=== PATIENT | female | born 1970 | race Caucasian/White ===

== ENCOUNTER 2016-07-28 15:30 | Inpatient (IN) | payer OTHER ==
[~2016-07-28] VITALS: Ht 167.6 cm; Wt 99.6 kg
[2016-07-28] MEDS ORDERED: NS IV 1000 ML 1,000 ML IV ONE ×2 (16:03→16:45)
[2016-07-28 16:31] LABS: BASOPHILS % (AUTO) 0 % (0-10); EOSINOPHILS % (AUTO) 0 % (0-10); LYMPHOCYTES # (AUTO) 1.2 X 10^3 (1.0-4.0); LYMPHOCYTES % (AUTO) 4 % (12-44); MEAN CORPUSCULAR HEMOGLOBIN 30 PG (25-34); MEAN CORPUSCULAR HGB CONC 34 G/DL (32-36); MEAN CORPUSCULAR VOLUME 90 FL (80-99); MEAN PLATELET VOLUME 11.1 FL (7.4-10.4); MONOCYTES # (AUTO) 1.5 X 10^3 (0.0-1.0); MONOCYTES % (AUTO) 4 % (0-12); NEUTROPHILS # (AUTO) 30.8 X 10^3 (1.8-7.8); NEUTROPHILS % (AUTO) 92 % (42-75); PLATELET COUNT 333 10^3/uL (130-400); RED BLOOD COUNT 3.29 10^6/uL (4.35-5.85)
[2016-07-28 16:35] LABS: WHITE BLOOD COUNT 33.5 10^3/uL (4.3-11.0)
[2016-07-28 16:43] LABS: ALBUMIN 3.5 G/DL (3.2-4.5); BILIRUBIN,TOTAL 1.3 MG/DL (0.1-1.0); CREATININE SERUM 5.82 MG/DL (0.60-1.30); POTASSIUM 5.5 MMOL/L (3.6-5.0); TOTAL PROTEIN 7.1 G/DL (6.4-8.2)
[2016-07-28] MEDS: LACTATED RINGERS 1,000 ML IV SCH ×3 (16:56→22:35)
[2016-07-28 16:59] LABS: BAND NEUTROPHILS 6 %; BASOPHILS % (MANUAL) 0 %; EOSINOPHILS % (MANUAL) 0 %; LYMPHOCYTES % (MANUAL) 3 %; NEUTROPHILS % (MANUAL) 91 %
--- NOTE | 2016-07-28 17:02 | ED General ---
General Chief Complaint: General Problems/Pain Stated Complaint: FEVER Nursing Triage Note: Patient reports nausea, vomiting, generalized weakness, fever and body aches since the 05 of july. patient has been evaluated twice by Dr. Teague patient was given prednisone, tramadol and phenergan without improvement. patient was on way to see Dr. Barr today and vomited and presented here Nursing Sepsis Screen: No Definite Risk Source of Information: Patient, Family Exam Limitations: No Limitations History of Present Illness Time Seen by Provider: 16:30 Initial Comments The patient Is a 46-year-old white female who was brought to the emergency room by her mother. They report that she has been ill since July 05. She saw Dr. Kermit Teague at an immediate care facility on that date. No specific diagnosis was made and she was given symptomatic treatment. She was then seen there at a later date and given prednisone and empiric therapy. She reports that she's felt well for only 1 or 2 days during this period of time. Her mother was driving her this afternoon and she vomited and looked quite fainty and she decided to come here instead of going to Dr. Barr s office. She was noted to be febrile at presentation with a temperature of 102.3 her blood pressure was 65 /29 her pulse 124. IV fluid resuscitation was started immediately. She gave no history immediately suggestive of the source of infection Timing/Duration: Other (July 05) Associated Systoms: Diaphoresis, Fever/Chills, Nausea/Vomiting Allergies and Home Medications Allergies Coded Allergies: No Known Drug Allergies (Unverified , 07/28/16) Constitutional: see HPI EENTM: no symptoms reported Cardiovascular: no symptoms reported Gastrointestinal: diarrhea, nausea, vomiting Genitourinary: no symptoms reported Musculoskeletal: muscle weakness Skin: see HPI Psychiatric/Neurological: No Symptoms Reported Past Rjkeekf-Ilfnif-Kcaikp Hx Patient Social History Alcohol Use: Denies Use Recreational Drug Use: No Smoking Status: Never a Smoker Recent Foreign Travel: No Contact w/Someone Who Travel: No Recent Infectious Disease Expo: No Recent Hopitalizations: No Seasonal Allergies Seasonal Allergies: No Surgeries HX Surgeries: No Respiratory Hx Respiratory Disorders: No Cardiovascular Hx Cardiac Disorders: Yes Cardiac Disorders: Hypertension Neurological Hx Neurological Disorders: No Reproductive System Hx Reproductive Disorders: No Sexually Transmitted Disease: No Female Reproductive Disorders: Menstrual Problems Genitourinary Hx Genitourinary Disorders: No Gastrointestinal Hx Gastrointestinal Disorders: No Musculoskeletal Hx Musculoskeletal Disorders: No Endocrine Hx Endocrine Disorders: Yes Endocrine Disorders: Hypothyroidsim HEENT HX ENT Disorders: No Cancer Hx Cancer: No Psychosocial Hx Psychiatric Problems: No Integumentary HX Skin/Integumentary Disorder: No Blood Transfusions Hx Blood Disorders: No Physical Exam Vital Signs Vital Sign - Last 12Hours 07/28/16 15:46 Temp 102.3 Pulse 124 Resp 18 B/P (MAP) 65/29 Pulse Ox 98 O2 Delivery Room Air Capillary Refill : Less Than 3 Seconds General Appearance: Moderate Distress, Severe Distress Eyes: Bilateral Eye Normal Inspection HEENT: Normal ENT Inspection Neck: Normal Inspection Respiratory: Chest Non Tender, Lungs Clear, Normal Breath Sounds, No Accessory Muscle Use, No Respiratory Distress Cardiovascular: Tachycardia Gastrointestinal: Other (obese. Bowel sounds hypoactive no pain to palpation) Back: No CVA Tenderness Extremity: Normal Inspection, Normal Range of Motion, Non Tender, No Calf Tenderness, No Pedal Edema, Slow Capillary Refill Neurologic/Psychiatric: Alert, Oriented x3, No Motor/Sensory Deficits, Normal Mood/Affect Skin: Normal Color, Warm/Dry Lymphatic: No Adenopathy Focused Exam Lactic Acid Level Laboratory Tests Test 07/28/16 16:05 Lactic Acid Level 2.97 MMOL/L (0.50-2.00) *H Progress/Results/Core Measures Results/Orders Lab Results Laboratory Tests Test 07/28/16 16:05 Range/Units White Blood Count 33.5 *H 4.3-11.0 10^3/uL Red Blood Count 3.29 L 4.35-5.85 10^6/uL Hemoglobin 10.0 L 11.5-16.0 G/DL Hematocrit 30 L 35-52 % Mean Corpuscular Volume 90 80-99 FL Mean Corpuscular Hemoglobin 30 25-34 PG Mean Corpuscular Hemoglobin Concent 34 32-36 G/DL Red Cell Distribution Width 13.0 10.0-14.5 % Platelet Count 333 130-400 10^3/uL Mean Platelet Volume 11.1 H 7.4-10.4 FL Neutrophils (%) (Auto) 92 H 42-75 % Lymphocytes (%) (Auto) 4 L 12-44 % Monocytes (%) (Auto) 4 0-12 % Eosinophils (%) (Auto) 0 0-10 % Basophils (%) (Auto) 0 0-10 % Neutrophils # (Auto) 30.8 H 1.8-7.8 X 10^3 Lymphocytes # (Auto) 1.2 1.0-4.0 X 10^3 Monocytes # (Auto) 1.5 H 0.0-1.0 X 10^3 Eosinophils # (Auto) 0.0 0.0-0.3 10^3/uL Basophils # (Auto) 0.0 0.0-0.1 10^3/uL Neutrophils % (Manual) 91 % Lymphocytes % (Manual) 3 % Monocytes % (Manual) 0 % Eosinophils % (Manual) 0 % Basophils % (Manual) 0 % Band Neutrophils 6 % Blood Morphology Comment NORMAL Sodium Level 125 *L 135-145 MMOL/L Potassium Level 5.5 H 3.6-5.0 MMOL/L Chloride Level 95 L 98-107 MMOL/L Carbon Dioxide Level 16 L 21-32 MMOL/L Anion Gap 14 5-14 MMOL/L Blood Urea Nitrogen 45 H 7-18 MG/DL Creatinine 5.82 H 0.60-1.30 MG/DL Estimat Glomerular Filtration Rate 8 BUN/Creatinine Ratio 8 Glucose Level 133 H 70-105 MG/DL Lactic Acid Level 2.97 *H 0.50-2.00 MMOL/L Calcium Level 9.0 8.5-10.1 MG/DL Total Bilirubin 1.3 H 0.1-1.0 MG/DL Aspartate Amino Transf (AST/SGOT) 15 5-34 U/L Alanine Aminotransferase (ALT/SGPT) 19 0-55 U/L Alkaline Phosphatase 142 H 40-136 U/L Total Protein 7.1 6.4-8.2 G/DL Albumin 3.5 3.2-4.5 G/DL My Orders Orders - NI SHEPARD MD Saline Lock/Iv-Start (07/28/16 16:03) Ns Iv 1000 Ml (Sodium Chloride 0.9%) (07/28/16 16:03) Cbc With Automated Diff (07/28/16 16:07) Comprehensive Metabolic Panel (07/28/16 16:07) Lactic Acid Analyzer (07/28/16 16:07) Ua Culture If Indicated (07/28/16 16:07) Blood Culture (07/28/16 16:07) Chest 1 View, Ap/Pa Only (07/28/16 16:07) Manual Differential (07/28/16 16:05) Ns Iv 1000 Ml (Sodium Chloride 0.9%) (07/28/16 16:45) Lactated Ringers (Lr 1000 Ml Iv Solution (07/28/16 17:00) Medications Given in ED Current Medications Medications Dose Ordered Sig/Ady Route Start Time Stop Time Status Last Admin Dose Admin Sodium Chloride 1,000 ml @ 0 mls/hr Q0M ONCE IV 07/28/16 16:03 07/28/16 16:05 DC 07/28/16 16:11 0 MLS/HR Sodium Chloride 1,000 ml @ 0 mls/hr Q0M ONCE IV 07/28/16 16:45 07/28/16 16:46 DC 07/28/16 16:49 0 MLS/HR Vital Signs/I&O Vital Sign - Last 12Hours 07/28/16 07/28/16 07/28/16 15:46 16:52 17:26 Temp 102.3 102.6 100.6 Pulse 124 97 103 Resp 18 16 18 B/P (MAP) 65/29 78/48 80/46 Pulse Ox 98 100 100 O2 Delivery Room Air Room Air Room Air Blood Pressure Mean: 58 Departure Communication Progress Notes Discussed patient with Dr. Barr who is the hospitalist at 1648. The patient will be admitted to the ICU. 1708 discussed with Caleb Morse inpatient clinical vineyard worker. The plan will be to start Zosyn and vancomycin and pharmacy will adjust to kidney function for subsequent doses. 1725 reevaluated patient. Blood pressure has now reached 100 systolic. The capillary refill is less than 3 seconds[address] Gallardo who is on for ICU/critical intensive care nurse Impression Impression: Primary Impression: septic shock Disposition: ADMITTED INPATIENT Condition: Improved Decision to Admit Reason: Admit from ER (General) Decision to Admit/Date: Jul 28, 2016 Time/Decision to Admit Time: 17:24 Departure-Patient Inst. Referrals: NAIF BARR DO (PCP/Family) Primary Care Physician NI SHEPARD MD Jul 28, 2016 17:02
--- NOTE | 2016-07-28 17:18 | Diagnostic Imaging Report ---
INDICATION: Weakness, fever. TECHNIQUE: Single view chest 4:57 PM. CORRELATION STUDY: None FINDINGS: The heart size, mediastinal configuration and pulmonary vascularity are within normal limits. The lungs are clear with no consolidating infiltrate. There is no significant effusion or pneumothorax. IMPRESSION: 1. Negative portable chest. Dictated by: Dictated on workstation # [id number]
[2016-07-28] MEDS ORDERED: PIPERACILLIN SODIUM/TAZOBACTAM 4.5 GM in NS (IVPB) 100 ML IV ONE (17:45)
[2016-07-28] MEDS ORDERED: VANCOMYCIN INJECTION 1,000 MG in NS (IVPB) 250 ML IV ONE (17:45)
[2016-07-28 18:15] VITALS: BP 91/51
[2016-07-28 19:00] VITALS: BP 83/46
[2016-07-28 19:14] LABS: BILIRUBIN,URINE NEGATIVE (NEGATIVE); KETONES,URINE NEGATIVE (NEGATIVE); LEUKOCYTE ESTERASE ,URINE 3+ (NEGATIVE); NITRITE,URINE NEGATIVE (NEGATIVE); PH,URINE 5 (5-9); PROTEIN,URINE 3+ (NEGATIVE); UROBILINOGEN,URINE NORMAL (NORMAL)
[2016-07-28 19:22] LABS: SQUAMOUS EPITHELIAL CELL,UR 25-50 /HPF; WBC,URINE TNTC /HPF
[2016-07-28] MEDS ORDERED: ACETAMINOPHEN 650 MG SUPP (TYLENOL) PR PRN (19:30)
[2016-07-28 20:00] VITALS: BP 86/40
[2016-07-28 21:30] VITALS: BP 87/59
[2016-07-28 22:15] VITALS: BP 108/93
[2016-07-28] MEDS: ACETAMINOPHEN 500 MG TAB (TYLENOL) PO PRN (22:17)
[2016-07-28 22:49] LABS: CREATININE SERUM 4.41 MG/DL (0.60-1.30); POTASSIUM 5.1 MMOL/L (3.6-5.0)
[2016-07-28] MEDS ORDERED: NOREPINEPHRINE 4 MG/4 ML (LEVOPHED) AMP IV ONE (23:07)
[2016-07-28] MEDS ORDERED: D5W 250 ML (IVPB) 250 ML IV ONE (23:08)
[2016-07-28 23:15] VITALS: BP 98/47
[2016-07-28] MEDS: NOREPINEPHRINE 4 MG in D5W 250 ML (IVPB) 250 ML IV SCH (23:19)
[2016-07-28] MEDS ORDERED: ONDANSETRON 4 MG/2 ML (SDV) Z0FRAN IVP ONE (23:30)
--- NOTE | 2016-07-28 23:40 | OPERATIVE REPORT ---
DATE OF SERVICE: 07/28/2016 PREOPERATIVE DIAGNOSIS: Hypotension, sepsis. POSTOPERATIVE DIAGNOSIS: Hypotension, sepsis. PROCEDURE: Insertion of central line, right IJ, with ultrasound guidance. SURGEON: Dr. Nicole. SUPERINTENDENT SCHOOLS: None. ANESTHESIA: Local lidocaine. BLOOD LOSS: Scant. FLUIDS: None. POSTOP DISPOSITION: stable. INDICATIONS FOR PROCEDURE: The patient is a 46-year-old female who was admitted with sepsis, had hypotension and needed a central line so they could use pressors. FINDINGS: The patient had a central line placed in the right IJ without any difficulty. PROCEDURE NOTE: After informed consent was obtained, the patient in her bed, was sterilely prepped and draped in normal fashion. Bed was placed slightly Trendelenburg. Using an ultrasound, then with the guide of the needle watched it go into the IJ, got a good flash of blood, removed the syringe, and then placed a guidewire down the needle using the Seldinger technique. We then easily removed the needle and then made a stab incision along the guidewire using a #11 blade, and then over the guidewire placed a dilator using the Seldinger technique easily, and then removed the dilator, and then over the guidewire placed the central line. Again, it went in easily, removed the guidewire, and then easily aspirated and flushed in all 3 ports. Sutured the central line in place with a 3-0 silk suture, and then placed the antibiotic disk and then thoroughly cleaned the area and placed the dressing. The patient tolerated this procedure. Everything was cleaned up. Chest x-ray was performed and it appeared that there was no pneumothorax. We will wait for final radiologist reading. Job ID: [id number] DocumentID: [id number] Dictated Date: 07/28/2016 22:40:26 Senior Chemical Engineer Date: 07/28/2016 23:39:50 Dictated By: DO RIYA ALBA
[2016-07-29] VITALS (19 sets, daily range): BP systolic 88–122; BP diastolic 40–77
[2016-07-29] MEDS ORDERED: ACETAMINOPHEN 500 MG TAB (TYLENOL) PO ONE (03:30)
[2016-07-29] MEDS: LACTATED RINGERS 1,000 ML IV SCH ×3 (04:34→19:19)
[2016-07-29 04:55] LABS: BASOPHILS % (AUTO) 0 % (0-10); EOSINOPHILS # (AUTO) 0.1 10^3/uL (0.0-0.3); EOSINOPHILS % (AUTO) 0 % (0-10); LYMPHOCYTES # (AUTO) 0.7 X 10^3 (1.0-4.0); LYMPHOCYTES % (AUTO) 3 % (12-44); MEAN CORPUSCULAR HEMOGLOBIN 30 PG (25-34); MEAN CORPUSCULAR HGB CONC 34 G/DL (32-36); MEAN CORPUSCULAR VOLUME 90 FL (80-99); MEAN PLATELET VOLUME 11.4 FL (7.4-10.4); MONOCYTES # (AUTO) 0.8 X 10^3 (0.0-1.0); MONOCYTES % (AUTO) 3 % (0-12); NEUTROPHILS # (AUTO) 22.3 X 10^3 (1.8-7.8); NEUTROPHILS % (AUTO) 93 % (42-75); PLATELET COUNT 254 10^3/uL (130-400); RED BLOOD COUNT 2.94 10^6/uL (4.35-5.85); RED CELL DISTRIBUTION WIDTH 12.8 % (10.0-14.5); WHITE BLOOD COUNT 23.9 10^3/uL (4.3-11.0)
[2016-07-29 05:06] LABS: ALBUMIN 2.6 G/DL (3.2-4.5); CALCIUM 8.2 MG/DL (8.5-10.1); CREATININE SERUM 3.81 MG/DL (0.60-1.30); PHOSPHORUS 3.9 MG/DL (2.3-4.7); POTASSIUM 4.4 MMOL/L (3.6-5.0)
[2016-07-29 05:13] LABS: MAGNESIUM 0.8 MG/DL (1.8-2.4)
[2016-07-29] MEDS: POTASSIUM CL 10MEQ/50ML IVPB 50 ML IV SCH (05:20)
[2016-07-29] MEDS: KCL 20 MEQ TAB (K-DUR) PO SCH (05:20)
[2016-07-29] MEDS: MAGNESIUM 1 GM/100 ML IVPB 100 ML IV SCH ×5 (05:21→07:49)
[2016-07-29] MEDS: PIPERACILLIN/TAZOBACTAM 4.5 GM/NS100 ML IVPB IV SCH ×4 (05:47→18:16)
--- NOTE | 2016-07-29 05:52 | Diagnostic Imaging Report ---
PA and lateral chest at 1017 hours. INDICATION: Central line placement. FINDINGS: In the interval since the exam performed earlier today, a central venous catheter has been inserted on the right. The tip of the catheter overlies the distal superior vena cava and seems to be in good position. There is no sign of pneumothorax and the overall appearance of the chest is unchanged. IMPRESSION: There has been insertion of central venous catheter on the right without apparent complication. Dictated by: Dictated on workstation # [id number]
[2016-07-29] MEDS ORDERED: NS IV 500 ML 500 ML ONE (06:17)
--- NOTE | 2016-07-29 06:20 | Pulmonary Consultation ---
History of Present Illness History of Present Illness Date of Consultation 07/29/16 06:15 Date of Admission History of Present Illness 46yo presented to ED secondary to fever, and not feeling well. Pt was found to have fever of 102.3 and BP of 65/29, HR 124. Pt was given IVF which helped some. Levophed had to be started. Central line was placed by Dr. Nicole. She also had been vomiting and had presyncope. No previous episodes like this. I am consulted for ICU management. Allergies and Home Medications Allergies Coded Allergies: No Known Drug Allergies (Unverified , 07/28/16) Past Oskvaqq-Efjdeo-Huzmjl Hx Patient Social History Alcohol Use: Denies Use Recreational Drug Use: No Smoking Status: Never a Smoker Recent Foreign Travel: No Contact w/Someone Who Travel: No Recent Infectious Disease Expo: No Recent Hopitalizations: No Physical Abuse Screen: No Sexual Abuse: No Seasonal Allergies Seasonal Allergies: No Surgeries HX Surgeries: No Respiratory Hx Respiratory Disorders: No Cardiovascular Hx Cardiac Disorders: Yes Cardiac Disorders: Hypertension Neurological Hx Neurological Disorders: No Reproductive System Hx Reproductive Disorders: No Sexually Transmitted Disease: No Female Reproductive Disorders: Menstrual Problems Genitourinary Hx Genitourinary Disorders: No Gastrointestinal Hx Gastrointestinal Disorders: No Musculoskeletal Hx Musculoskeletal Disorders: No Endocrine Hx Endocrine Disorders: Yes Endocrine Disorders: Hypothyroidsim HEENT HX ENT Disorders: No Cancer Hx Cancer: No Psychosocial Hx Psychiatric Problems: No Integumentary HX Skin/Integumentary Disorder: No Blood Transfusions Hx Blood Disorders: No Family Medical History Family Medial History: Patient reports no known family medical history. Review of Systems Constitutional: Chills, Fever, Malaise, Sweats, Weakness Eyes: No: Conjunctivae inflammation, Eyelid inflammation, Other, Pain, Redness , Vision change ENT: No: Ear discharge, Ear pain, Mouth pain, Mouth swelling, Nose congestion, Nose discharge, Nose pain, Other, Throat pain, Throat swelling Respiratory: Shortness of breath, No: Cough, Dry, Hemoptysis, Other, Pleuritic Pain, SOB with excertion, Sputum, Wheezing, Wheezing Cardiovascular: No: Chest Pain, Edema, Lt Headedness, Orthopnea, Other, Palpitations, Paroxysmal Noc. Dyspnea Gastrointestinal: Nausea, Vomiting, No: Abdominal Pain Genitourinary: Dysuria Neurological: Confusion, Incoordination, Weakness Exam Exam Vital Signs Date Time Temp Pulse Resp B/P (MAP) Pulse Ox O2 Delivery O2 Flow Rate FiO2 07/29/16 05:57 99.5 07/29/16 04:24 102.1 07/29/16 03:30 99 Room Air 07/29/16 03:08 102.1 07/29/16 02:00 80 17 107/60 100 Room Air 07/29/16 01:28 88/50 07/29/16 01:00 84 12 105/60 97 Room Air 07/29/16 00:29 100.9 07/29/16 00:00 91 14 99/49 97 Room Air 07/29/16 00:00 91 Room Air 07/28/16 23:45 101.1 07/28/16 23:15 102 17 98/47 98 Room Air 07/28/16 22:15 111 29 108/93 94 Room Air 07/28/16 21:30 92 21 87/59 100 Room Air 07/28/16 20:00 99 Room Air 07/28/16 20:00 92 23 86/40 99 Room Air 07/28/16 19:00 100.9 91 19 83/46 99 Room Air 07/28/16 18:15 99.0 98 18 91/51 98 Room Air 07/28/16 17:59 98 18 100 07/28/16 17:26 100.6 103 18 80/46 100 Room Air 07/28/16 16:52 102.6 97 16 78/48 100 Room Air 07/28/16 15:46 102.3 124 18 65/29 98 Room Air I & O 07/29/16 07:00 Intake Total 4150 ml Output Total 2325 ml Balance 1825 ml General Appearance: Moderate Distress, Severe Distress HEENT: Normal ENT Inspection Neck: Normal Inspection Respiratory: Chest Non Tender, Lungs Clear, Normal Breath Sounds, No Accessory Muscle Use, No Respiratory Distress Cardiovascular: Tachycardia Capillary Refill: Less Than 3 Seconds Extremity: Normal Inspection, Normal Range of Motion, Non Tender, No Calf Tenderness, No Pedal Edema, Slow Capillary Refill Neurologic/Psychiatric: Alert, Oriented x3, No Motor/Sensory Deficits, Normal Mood/Affect Skin: Normal Color, Warm/Dry Lymphatic: No Adenopathy Results Lab Laboratory Tests 07/28/16 16:05 07/28/16 22:22 07/29/16 04:30 Assessment/Plan Assessment/Plan Severe sepsis with shock secondary to UTI -Currently on Levophed -Give another 1 liter bolus of NS -Check CVP monitoring -Continue vanco zosyn and await cultures Acute renal failure- improving continue aggressive IVF Hyperkalemia - resolved Hypomagnesium -replace Metabolic acidosis -IVF monitor Clinical Quality Measures DVT/VTE Risk/Contraindication: Risk Factor Score Per Nursin RFS Level Per Nursing on Admit: 4+=Very High ESTEVAN CARDENAS DO Jul 29, 2016 06:20
[2016-07-29] MEDS ORDERED: NS IV 500 ML 500 ML IV SCH (06:45)
[2016-07-29] MEDS ORDERED: LACTATED RINGERS 1,000 ML IV SCH (06:45)
[2016-07-29] MEDS: NOREPINEPHRINE 4 MG in D5W 250 ML (IVPB) 250 ML IV SCH ×3 (07:50→21:05)
--- NOTE | 2016-07-29 07:50 | Diagnostic Imaging Report ---
Portable erect AP chest at 5:00 AM. INDICATION: Fever, weakness. The heart size is within normal limits and stable when compared to 07/28/2016. The lungs remain clear. There is still no sign of failure, pneumonia, or pleural effusion. Mediastinum is not widened. The osseous structures are intact. The central venous catheter on the right seen previously remains in good position. IMPRESSION: Stable chest. There has been no adverse change since the prior exam. Dictated by: Dictated on workstation # [id number]
[2016-07-29] MEDS ORDERED: LEVO137T2 PO (08:54)
[2016-07-29] MEDS ORDERED: LEVO150T6 PO (08:54)
[2016-07-29] MEDS ORDERED: HYDR25TA4 PO (08:54)
[2016-07-29] MEDS ORDERED: OMG1KC PO (08:54)
[2016-07-29] MEDS ORDERED: QUIN40TA25 PO (08:54)
[2016-07-29 10:41] LABS: MAGNESIUM 2.3 MG/DL (1.8-2.4); POTASSIUM 4.4 MMOL/L (3.6-5.0)
[2016-07-29] MEDS: ENOXAPARIN 30 MG/0.3 ML (LOVENOX) SYR SC SCH (10:47)
--- NOTE | 2016-07-29 11:08 | History & Physical-Hospitalist ---
HPI History of Present Illness: HPI/Chief Complaint CC: Septic shock requiring aggressive IV fluid resuscitation along with pressor therapy likely due to enterococcus source from pyelonephritis HPI: This is a 46-year-old white female clinic patient of mine that I see on a yearly basis that has a past medical history of mild hypertension and hypothyroidism that presented to the emergency room after she was a no-show at my clinic appointment due to worsening status the prompted ER D to her the decision made by her mother. She was found to be in septic shock with blood pressure of systolic of 70 and aggressive IV fluid resuscitation was started along with panculture and initiated broad-spectrum antibiotics for empiric treatment of bacterial infection. She had been feeling unwell for the past several weeks reported to [facility] urgent care and had declined labs as ordered by Dr. Teague the physician at the urgent care due to cost concerns and she only worsened since that time with nausea and vomiting and fever and prompted an appointment with me scheduled for yesterday but in the mist of traveling to the clinic she worsened to the point that her mother took her to the emergency room and found to be on borderline of complete clinical decompensation. She is required 6 L of fluid since admission is placed on Levophed for pressor therapy and broad-spectrum antibiotic coverage remains with good urinary output with creatinine initially 5.8 now is 3.8 with good urinary output. She is currently very fatigued and not talking very much and her mother is updated on the plan. Source: patient, RN/MD Exam Limitations: clinical condition Date Seen 07/29/16 Attending Physician Chloe King DO PCP Chloe King DO Referring Physician Date of Admission Jul 28, 2016 at 17:42 Home Medications & Allergies Home Medications Reviewed patient Home Medication Reconciliation Form Allergies Allergies Coded Allergies No Known Drug Allergies (Unverified07/28/16) Past Ynvxose-Pfazsl-Qpdnws Hx Patient Social History Marrital Status: Employed/Student: employed Alcohol Use: Denies Use Recreational Drug Use: No Smoking Status: Never a Smoker Physical Abuse Screen: No Sexual Abuse: No Recent Foreign Travel: No Contact w/other who traveled: No Recent Hopitalizations: No Recent Infectious Disease Expo: No Seasonal Allergies Seasonal Allergies: No Surgeries HX Surgeries: No Respiratory Hx Respiratory Disorders: No Cardiovascular Hx Cardiovascular Disorders: Yes Cardiac Disorders: Hypertension Neurological Hx Neurological Disorders: No Reproductive System Hx Reproductive Disorders: No Sexually Transmitted Disease: No Female Reproductive Disorders: Menstrual Problems Genitourinary Hx Genitourinary Disorders: No Gastrointestinal Hx Gastrointestinal Disorders: No Musculoskeletal Hx Musculoskeletal Disorders: No Endocrine Hx Endocrine Disorders: Yes Endocrine Disorders: Hypothyroidsim HEENT HX ENT Disorders: Yes (cornea polyp by Dr. Lorenzo) Cancer Hx Cancer: No Psychosocial Hx Psychiatric Problems: No Integumentary HX Skin/Integumentary Disorder: No Blood Transfusions Hx Blood Disorders: No Family Medical History Family Hx: Patient reports no known family medical history. Review of Systems Constitutional: see HPI, dizziness, fever, malaise, weakness, weight loss EENTM: no symptoms reported Respiratory: no symptoms reported Cardiovascular: no symptoms reported Gastrointestinal: loss of appetite, nausea, vomiting Genitourinary: decreased output, hematuria Musculoskeletal: back pain Skin: no symptoms reported Psychiatric/Neurological: Anxiety, Depressed All Other Systems Reviewed Negative Unless Noted: Yes Physical Exam Physical Exam Vital Signs Vital Sign - Last 12Hours 07/28/16 15:46 Temp 102.3 Pulse 124 Resp 18 B/P (MAP) 65/29 Pulse Ox 98 O2 Delivery Room Air Capillary Refill : Less Than 3 Seconds General Appearance: No Apparent Distress, WD/WN, Other (acutely ill) Eyes: Bilateral Eye Normal Inspection, Bilateral Eye PERRL HEENT: PERRL/EOMI, Normal ENT Inspection, Pharynx Normal Neck: Full Range of Motion, Normal Inspection, Non Tender, Supple, Carotid Bruit Respiratory: Chest Non Tender, Lungs Clear, Normal Breath Sounds, No Accessory Muscle Use, No Respiratory Distress Cardiovascular: No Edema, No Gallop, No JVD, No Murmur, Normal Peripheral Pulses, Tachycardia Gastrointestinal: Normal Bowel Sounds, No Organomegaly, No Pulsatile Mass, Non Tender, Soft Back: Normal Inspection, No CVA Tenderness, No Vertebral Tenderness Extremity: Normal Capillary Refill, Normal Inspection, Normal Range of Motion, Non Tender, No Calf Tenderness, No Pedal Edema Neurologic/Psychiatric: Alert, Oriented x3, No Motor/Sensory Deficits, Depressed Affect Skin: Normal Color, Warm/Dry Lymphatic: No Adenopathy Results Results/Procedures Lab Laboratory Tests 07/28/16 16:05 07/28/16 22:22 07/29/16 04:30 07/29/16 10:20 Assessment/Plan Admission Diagnosis Assessment: Septic shock due to enterococcus on urine culture likely will result in blood cultures requiring aggressive IV fluid resuscitation along with pressor therapy Hypertension as an outpatient very mild Hypothyroidism Acute renal failure Anemia dilutional cause in addition to acute renal failure Assessment and Plan plan: Maintain aggressive IV fluid resuscitation and pressor therapy Monitor labs Broad-spectrum antibiotic coverage until all cultures are completed Pain medication Hold home antihypertensive medication due to hypotension Critically ill and monitor closely for clinical decompensation Clinical Quality Measures DVT/VTE Risk/Contraindication: Risk Factor Score Per Nursin RFS Level Per Nursing on Admit: 4+=Very High CHLOE KING DO Jul 29, 2016 11:07
[2016-07-29] MEDS: ACETAMINOPHEN 500 MG TAB (TYLENOL) PO PRN ×2 (11:26→17:35)
[2016-07-29] MEDS ORDERED: LACTATED RINGERS 1,000 ML IV ONE ×3 (12:17→13:00)
[2016-07-29] MEDS ORDERED: NS (IVPB) 50 ML ONE (13:08)
[2016-07-29] MEDS ORDERED: VASOPRESSIN INJECTION 20 UNIT/ML VIAL ONE (13:08)
[2016-07-29] MEDS ORDERED: VASOPRESSIN INJECTION 20 UNIT in NS (IVPB) 50 ML IV SCH (13:15)
[2016-07-29] MEDS ORDERED: TROUGH ORDER-PHARMACY XX NR (17:00)
[2016-07-29] MEDS ORDERED: VANCOMYCIN 1 GM/NS 250 ML IVPB IV SCH ×2 (18:00)
[2016-07-29] MEDS: VANCOMYCIN INJECTION 1,500 MG in NS IV 500 ML 500 ML IV SCH (20:07)
[2016-07-30] VITALS (24 sets, daily range): BP systolic 85–128; BP diastolic 38–90
[2016-07-30] MEDS: ACETAMINOPHEN 500 MG TAB (TYLENOL) PO PRN ×3 (00:05→18:10)
[2016-07-30] MEDS: LACTATED RINGERS 1,000 ML IV SCH ×4 (02:11→23:32)
[2016-07-30 05:27] LABS: BASOPHILS % (AUTO) 0 % (0-10); EOSINOPHILS % (AUTO) 0 % (0-10); LYMPHOCYTES % (AUTO) 6 % (12-44); MEAN CORPUSCULAR HEMOGLOBIN 30 PG (25-34); MEAN CORPUSCULAR HGB CONC 33 G/DL (32-36); MEAN CORPUSCULAR VOLUME 91 FL (80-99); MEAN PLATELET VOLUME 11.7 FL (7.4-10.4); MONOCYTES # (AUTO) 0.6 X 10^3 (0.0-1.0); MONOCYTES % (AUTO) 4 % (0-12); NEUTROPHILS # (AUTO) 13.9 X 10^3 (1.8-7.8); NEUTROPHILS % (AUTO) 89 % (42-75); PLATELET COUNT 225 10^3/uL (130-400); RED BLOOD COUNT 2.94 10^6/uL (4.35-5.85); WHITE BLOOD COUNT 15.6 10^3/uL (4.3-11.0)
[2016-07-30 05:43] LABS: CALCIUM 8.3 MG/DL (8.5-10.1); CREATININE SERUM 2.57 MG/DL (0.60-1.30); MAGNESIUM 1.6 MG/DL (1.8-2.4); PHOSPHORUS 3.9 MG/DL (2.3-4.7); POTASSIUM 4.1 MMOL/L (3.6-5.0)
[2016-07-30] MEDS ORDERED: MAGNESIUM 1 GM/100 ML IVPB 100 ML IV SCH (06:00)
[2016-07-30] MEDS: KCL 20 MEQ TAB (K-DUR) PO SCH ×2 (06:00)
[2016-07-30] MEDS: MAGNESIUM 1 GM/100 ML IVPB 100 ML IV SCH ×3 (06:00→08:10)
[2016-07-30] MEDS: POTASSIUM CL 10MEQ/50ML IVPB 50 ML IV SCH ×2 (06:00)
[2016-07-30] MEDS: NOREPINEPHRINE 4 MG in D5W 250 ML (IVPB) 250 ML IV SCH (06:36)
[2016-07-30] MEDS: PIPERACILLIN/TAZOBACTAM 4.5 GM/NS100 ML IVPB IV SCH ×4 (06:49→18:08)
--- NOTE | 2016-07-30 08:35 | Diagnostic Imaging Report ---
EXAM: CHEST 1 VIEW, AP/PA ONLY INDICATION: Fever. Weakness. Septic shock. COMPARISON: Chest radiograph 07/29/2016. FINDINGS: Normal heart size and pulmonary vascularity. No focal pulmonary opacity, pleural effusion or pneumothorax. Right IJ CVC tip mid SVC. No acute osseous findings. IMPRESSION: No acute cardiopulmonary findings. Dictated by: Dictated on workstation # [id number]
--- NOTE | 2016-07-30 09:09 | Progress Note-Hospitalist ---
Subjective HPI/CC On Admission CC: Septic shock requiring aggressive IV fluid resuscitation along with pressor therapy likely due to enterococcus source from pyelonephritis HPI: This is a 46-year-old white female clinic patient of mine that I see on a yearly basis that has a past medical history of mild hypertension and hypothyroidism that presented to the emergency room after she was a no-show at my clinic appointment due to worsening status the prompted ER D to her the decision made by her mother. She was found to be in septic shock with blood pressure of systolic of 70 and aggressive IV fluid resuscitation was started along with panculture and initiated broad-spectrum antibiotics for empiric treatment of bacterial infection. She had been feeling unwell for the past several weeks reported to [facility] urgent care and had declined labs as ordered by Dr. Teague the physician at the urgent care due to cost concerns and she only worsened since that time with nausea and vomiting and fever and prompted an appointment with me scheduled for yesterday but in the mist of traveling to the clinic she worsened to the point that her mother took her to the emergency room and found to be on borderline of complete clinical decompensation. She is required 6 L of fluid since admission is placed on Levophed for pressor therapy and broad-spectrum antibiotic coverage remains with good urinary output with creatinine initially 5.8 now is 3.8 with good urinary output. She is currently very fatigued and not talking very much and her mother is updated on the plan. Date Seen 07/30/16 Subjective/Events-last exam patient is awake and alert little bit hungry and a little bit tearful. no specific complaints Review of Systems Neurological: Weakness Objective Exam Vital Signs Vital Sign - Last 12Hours 07/28/16 15:46 Temp 102.3 Pulse 124 Resp 18 B/P (MAP) 65/29 Pulse Ox 98 O2 Delivery Room Air Capillary Refill : Less Than 3 Seconds General Appearance: No Apparent Distress HEENT: Normal ENT Inspection Neck: Limited Range of Motion Respiratory: Lungs Clear, Normal Breath Sounds, No Accessory Muscle Use, No Respiratory Distress Cardiovascular: Regular Rate, Rhythm, No Gallop, No Murmur Gastrointestinal: No Organomegaly, Non Tender, Soft Rectal: Deferred Extremity: Pedal Edema Neurologic/Psychiatric: Alert, Oriented x3, No Motor/Sensory Deficits, Depressed Affect Skin: Normal Color, Warm/Dry Lymphatic: No Adenopathy Results/Procedures Lab Laboratory Tests 07/29/16 10:20 07/30/16 04:35 Assessment/Plan Assessment and Plan Assess & Plan/Chief Complaint Assessment: Septic shock due to enterococcus,and Klebsiella on urine culture. on vancomycin and Zosyn Hypertension as an outpatient very mild Hypothyroidism Acute renal failure Anemia dilutional cause in addition to acute renal failure plan to advance diet as tolerate and increase activity as tolerated LALITA CAMARILLO MD Jul 30, 2016 09:09
[2016-07-30] MEDS: ENOXAPARIN 30 MG/0.3 ML (LOVENOX) SYR SC SCH (09:37)
[2016-07-30 09:42] LABS: CALCIUM IONIZED 1.14 mmol/L (1.16-1.32); CORRECTED IONIZED CALCIUM 1.13 mmol/L (1.16-1.32)
[2016-07-30] MEDS ORDERED: NS IV 1000 ML 1,000 ML IV ONE (14:45)
--- NOTE | 2016-07-30 16:09 | Diagnostic Imaging Report ---
PROCEDURE: CT abdomen and pelvis without contrast. TECHNIQUE: Multiple contiguous axial images were obtained through the abdomen and pelvis without the use of intravenous contrast. INDICATION: Sepsis. Renal failure. COMPARISON: None. FINDINGS: Lung bases are clear. The liver, gallbladder, pancreas, spleen, adrenals, collecting systems and appendix are unremarkable. There is marked enlargement of the left kidney and surrounding perinephric inflammatory changes. The right kidney is moderately atrophic. Possible mass or cyst in the anterior left kidney, inferior pole. Prominent but subcentimeter retroperitoneal lymph nodes. No free intraperitoneal air. No evidence of bowel obstruction. No organized fluid collections. Osseous structures are unremarkable. Small calcified uterine fibroid. IMPRESSION: 1. Marked enlargement of the left kidney is at least partially due to hypertrophy secondary to a markedly atrophic right kidney. There is perinephric stranding about the left kidney. Although this can be a benign chronic finding, this can also be seen with pyelonephritis. Recommend correlation with urinalysis. 2. There appears to be an ill-defined small mass or cyst in the anterior left kidney. Recommend further evaluation with ultrasound and/or contrast enhanced CT or MRI. Dictated by: Dictated on workstation # [id number]
[2016-07-30] MEDS: VANCOMYCIN INJECTION 1,500 MG in NS IV 500 ML 500 ML IV SCH (21:12)
[2016-07-31] VITALS (11 sets, daily range): BP systolic 93–116; BP diastolic 43–67
[2016-07-31] MEDS: KCL 20 MEQ TAB (K-DUR) PO SCH ×2 (06:00→07:52)
[2016-07-31] MEDS: PIPERACILLIN/TAZOBACTAM 4.5 GM/NS100 ML IVPB IV SCH ×4 (06:42→18:31)
[2016-07-31 06:46] LABS: BASOPHILS % (AUTO) 0 % (0-10); EOSINOPHILS % (AUTO) 0 % (0-10); LYMPHOCYTES # (AUTO) 1.1 X 10^3 (1.0-4.0); LYMPHOCYTES % (AUTO) 16 % (12-44); MEAN CORPUSCULAR HEMOGLOBIN 30 PG (25-34); MEAN CORPUSCULAR HGB CONC 32 G/DL (32-36); MEAN CORPUSCULAR VOLUME 92 FL (80-99); MEAN PLATELET VOLUME 11.1 FL (7.4-10.4); MONOCYTES # (AUTO) 0.5 X 10^3 (0.0-1.0); MONOCYTES % (AUTO) 7 % (0-12); NEUTROPHILS # (AUTO) 5.1 X 10^3 (1.8-7.8); NEUTROPHILS % (AUTO) 76 % (42-75); PLATELET COUNT 173 10^3/uL (130-400); WHITE BLOOD COUNT 6.7 10^3/uL (4.3-11.0)
[2016-07-31 07:13] LABS: CREATININE SERUM 1.82 MG/DL (0.60-1.30); MAGNESIUM 1.5 MG/DL (1.8-2.4); PHOSPHORUS 2.4 MG/DL (2.3-4.7); POTASSIUM 3.7 MMOL/L (3.6-5.0)
[2016-07-31] MEDS: POTASSIUM CL 10MEQ/50ML IVPB 50 ML IV SCH ×2 (07:51)
[2016-07-31] MEDS: MAGNESIUM 1 GM/100 ML IVPB 100 ML IV SCH (08:40)
[2016-07-31] MEDS ORDERED: MAGNESIUM 1 GM/100 ML IVPB 100 ML IV SCH (08:45)
--- NOTE | 2016-07-31 09:38 | Progress Note-Hospitalist ---
Subjective HPI/CC On Admission CC: Septic shock requiring aggressive IV fluid resuscitation along with pressor therapy likely due to enterococcus source from pyelonephritis HPI: This is a 46-year-old white female clinic patient of mine that I see on a yearly basis that has a past medical history of mild hypertension and hypothyroidism that presented to the emergency room after she was a no-show at my clinic appointment due to worsening status the prompted ER D to her the decision made by her mother. She was found to be in septic shock with blood pressure of systolic of 70 and aggressive IV fluid resuscitation was started along with panculture and initiated broad-spectrum antibiotics for empiric treatment of bacterial infection. She had been feeling unwell for the past several weeks reported to [facility] urgent care and had declined labs as ordered by Dr. Teague the physician at the urgent care due to cost concerns and she only worsened since that time with nausea and vomiting and fever and prompted an appointment with me scheduled for yesterday but in the mist of traveling to the clinic she worsened to the point that her mother took her to the emergency room and found to be on borderline of complete clinical decompensation. She is required 6 L of fluid since admission is placed on Levophed for pressor therapy and broad-spectrum antibiotic coverage remains with good urinary output with creatinine initially 5.8 now is 3.8 with good urinary output. She is currently very fatigued and not talking very much and her mother is updated on the plan. Date Seen 07/31/16 Subjective/Events-last exam patient is looking much stronger today. SHe did have a black tarry stool yesterday and her hemoglobin dropped to 7.4 this morning. she has been on Lovenox and SCDs. Currently strong enough that she can begin ambulation and so I'll stop the Lovenox. Denies having any shortness of breath but complains of the puffiness. CT showed an atrophic right kidney and a cyst on the left kidney with perinephric stranding consistent with pyelonephritis. We'll get a sonogram tomorrow to evaluate for possible infection in the cyst. Review of Systems Gastrointestinal: Melena Neurological: Weakness Objective Exam Vital Signs Vital Sign - Last 12Hours 07/28/16 15:46 Temp 102.3 Pulse 124 Resp 18 B/P (MAP) 65/29 Pulse Ox 98 O2 Delivery Room Air Capillary Refill : Less Than 3 Seconds General Appearance: No Apparent Distress, WD/WN HEENT: Normal ENT Inspection Neck: Supple Respiratory: Lungs Clear, Normal Breath Sounds, No Accessory Muscle Use, No Respiratory Distress Cardiovascular: Regular Rate, Rhythm, No Gallop, No Murmur Gastrointestinal: No Organomegaly, Non Tender, Soft Extremity: Pedal Edema Neurologic/Psychiatric: Alert, Oriented x3, No Motor/Sensory Deficits, Normal Mood/Affect Skin: Normal Color, Warm/Dry Results/Procedures Lab Laboratory Tests 07/31/16 06:30 Assessment/Plan Assessment and Plan Assess & Plan/Chief Complaint Assessment: Septic shock due to enterococcus,and Klebsiella on urine culture. on vancomycin and Zosyn-patient is off pressors will DC the IV fluids since she is eating well and follow her lactic acid. Hypertension as an outpatient very mild-holding her blood pressure medications at this time Hypothyroidism-we'll begin replacement Acute renal failure-improving with atrophic right kidney, and enlarged left kidney and possible pyelonephritis we'll get a renal sonogram to evaluate the cyst Anemia with history consistent with GI bleeding will place her on Protonix and stop the Lovenox and follow closely hold transfusion at this time plan to advance diet as tolerate and increase activity as tolerated-we'll transfer to fourth floor. LALITA CAMARILLO MD Jul 31, 2016 09:38
[2016-07-31] MEDS: LEVOTHYROXINE 150 MCG (LEVOTHROID) TAB PO SCH (10:41)
[2016-07-31] MEDS: PANTOPRAZOLE 40 MG (PROTONIX) TAB PO SCH (10:41)
--- NOTE | 2016-07-31 10:59 | Diagnostic Imaging Report ---
EXAM: CHEST 1 VIEW, AP/PA ONLY INDICATION: Fever. Weakness. Septic shock. COMPARISON: Chest radiograph 07/30/2016. FINDINGS: Normal heart size and pulmonary vascularity. No focal consolidation, pleural effusion or pneumothorax. Right IJ CVC tip mid SVC. Osseous structures are unremarkable. IMPRESSION: Stable right IJ CVC tip. No acute cardiopulmonary findings. Dictated by: Dictated on workstation # [id number]
[2016-07-31] MEDS: ACETAMINOPHEN 500 MG TAB (TYLENOL) PO PRN (14:13)
[2016-07-31] MEDS ORDERED: TROUGH ORDER-PHARMACY XX NR (19:00)
[2016-07-31] MEDS: VANCOMYCIN INJECTION 1,500 MG in NS IV 500 ML 500 ML IV SCH (21:29)
[2016-08-01 04:27] VITALS: BP 116/56
[2016-08-01] MEDS: ACETAMINOPHEN 500 MG TAB (TYLENOL) PO PRN ×2 (04:42→20:05)
[2016-08-01] MEDS: PIPERACILLIN/TAZOBACTAM 4.5 GM/NS100 ML IVPB IV SCH ×2 (05:35)
[2016-08-01 06:42] LABS: BASOPHILS % (AUTO) 1 % (0-10); EOSINOPHILS # (AUTO) 0.1 10^3/uL (0.0-0.3); EOSINOPHILS % (AUTO) 2 % (0-10); LYMPHOCYTES # (AUTO) 1.1 X 10^3 (1.0-4.0); LYMPHOCYTES % (AUTO) 28 % (12-44); MEAN CORPUSCULAR HEMOGLOBIN 29 PG (25-34); MEAN CORPUSCULAR HGB CONC 31 G/DL (32-36); MEAN CORPUSCULAR VOLUME 93 FL (80-99); MEAN PLATELET VOLUME 11.6 FL (7.4-10.4); MONOCYTES # (AUTO) 0.5 X 10^3 (0.0-1.0); MONOCYTES % (AUTO) 12 % (0-12); NEUTROPHILS # (AUTO) 2.2 X 10^3 (1.8-7.8); NEUTROPHILS % (AUTO) 58 % (42-75); PLATELET COUNT 177 10^3/uL (130-400); RED BLOOD COUNT 2.41 10^6/uL (4.35-5.85); RED CELL DISTRIBUTION WIDTH 13.3 % (10.0-14.5); WHITE BLOOD COUNT 3.8 10^3/uL (4.3-11.0)
[2016-08-01 07:04] LABS: ALBUMIN 2.3 G/DL (3.2-4.5); BILIRUBIN,TOTAL 0.3 MG/DL (0.1-1.0); CREATININE SERUM 1.61 MG/DL (0.60-1.30); MAGNESIUM 1.6 MG/DL (1.8-2.4); POTASSIUM 3.6 MMOL/L (3.6-5.0); TOTAL PROTEIN 4.9 G/DL (6.4-8.2)
[2016-08-01 07:20] LABS: CALCIUM PH 7.39
[2016-08-01 08:00] VITALS: BP 116/75
[2016-08-01] MEDS ORDERED: CATHETER FLUSH 10 ML SYR IV PRN (09:30)
[2016-08-01] MEDS ORDERED: FUROSEMIDE 40 MG/4 ML INJ (LASIX) IVP NR (09:30)
[2016-08-01] MEDS: PANTOPRAZOLE 40 MG (PROTONIX) TAB PO SCH (09:48)
--- NOTE | 2016-08-01 09:48 | Diagnostic Imaging Report ---
EXAMINATION: Bilateral renal ultrasound. INDICATION: Renal enlargement on the left side. FINDINGS: The right kidney is 7.9 and the left kidney is 11.5 cm in length. There is no hydronephrosis. In the left kidney, there is an anterior area of significant thickening in the cortex mimicking a hypoechoic mass with internal vascularity seen measuring 6 x 4.7 x 4.3 cm. The right kidney demonstrates a cyst measuring 1 cm in size in the upper pole. IMPRESSION: There is a 6 cm left renal mass. In the setting of renal infection, this could be secondary to pyelonephritis rather than neoplasm. A followup study in 4 weeks is suggested to document resolution. The findings were discussed with Dr. King at the time of dictation. Dictated by: Dictated on workstation # [id number]
--- NOTE | 2016-08-01 10:01 | Progress Note-Hospitalist ---
Progress Note HPI/CC on Admission CC: Septic shock requiring aggressive IV fluid resuscitation along with pressor therapy likely due to enterococcus source from pyelonephritis HPI: This is a 46-year-old white female clinic patient of mine that I see on a yearly basis that has a past medical history of mild hypertension and hypothyroidism that presented to the emergency room after she was a no-show at my clinic appointment due to worsening status the prompted ER D to her the decision made by her mother. She was found to be in septic shock with blood pressure of systolic of 70 and aggressive IV fluid resuscitation was started along with panculture and initiated broad-spectrum antibiotics for empiric treatment of bacterial infection. She had been feeling unwell for the past several weeks reported to [facility] urgent care and had declined labs as ordered by Dr. Teague the physician at the urgent care due to cost concerns and she only worsened since that time with nausea and vomiting and fever and prompted an appointment with me scheduled for yesterday but in the mist of traveling to the clinic she worsened to the point that her mother took her to the emergency room and found to be on borderline of complete clinical decompensation. She is required 6 L of fluid since admission is placed on Levophed for pressor therapy and broad-spectrum antibiotic coverage remains with good urinary output with creatinine initially 5.8 now is 3.8 with good urinary output. She is currently very fatigued and not talking very much and her mother is updated on the plan. Progress Notes/Assess & Plan Date Seen 08/01/16 Admission Dx/Process Assessment: Septic shock due to enterococcus on urine culture likely will result in blood cultures requiring aggressive IV fluid resuscitation along with pressor therapy Hypertension as an outpatient very mild Hypothyroidism Acute renal failure Anemia dilutional cause in addition to acute renal failure Diagonsis/Assessment & Plan Patient doing much better after aggressive ICU hospital course with massive IV fluid resuscitation along with pressor therapy Reviewed blood culture and urine culture and shifted to Unasyn Will go home on Augmentin Renal ultrasound evaluated with radiology showing mass in left kidney so will repeat in one month Likely right kidney only has 20 percent function because cortex is viable per urology evaluation but needs nuclear scan to see if there is any contribution of the right side but likely 20 percent Will not need nephrology Patient denies any frequent UTIs especially since she's been treated by me for the last 10 years so this is not a chronic and recurrent UTI issue Feels edematous considering all the fluid that she did receive so we'll start Lasix creatinine noted at 1.6 down from a high of 5.8. No fever, vital signs stable, pleasant, improved, edematous Regular rate and rhythm, clear to auscultation bilaterally Nonpitting type of edema Laboratory Tests 08/01/16 05:37 Assessment: Septic shock due to enterococcus on cultures requiring aggressive IV fluid resuscitation along with pressor therapy Hypertension as an outpatient very mild Hypothyroidism Acute renal failure now much improved Anemia dilutional cause in addition to acute renal failure Plan: Monitor labs Unasyn transitioned from broad spectrum then will shift to PO Augmentin at DC Lasix IV Ambulate Lovenox Check USG in 1 month to assure no mass of the left kidney Monitor Hgb and will check Iron level NAIF BARR DO Aug 01, 2016 10:01
[2016-08-01 12:00] VITALS: BP 99/70
[2016-08-01] MEDS: AMPICILLIN/SULBACTAM 3 GM/NS 100 ML IVPB IV SCH ×4 (14:55→21:19)
[2016-08-01 16:00] VITALS: BP 111/70
[2016-08-01] MEDS: CATHETER FLUSH 10 ML SYR IV SCH ×2 (16:12→21:19)
[2016-08-01 20:00] VITALS: BP 130/79
[2016-08-02 00:49] VITALS: BP 112/59
[2016-08-02 04:42] VITALS: BP 110/61
[2016-08-02] MEDS: AMPICILLIN/SULBACTAM 3 GM/NS 100 ML IVPB IV SCH ×2 (05:10)
[2016-08-02] MEDS: CATHETER FLUSH 10 ML SYR IV SCH (05:11)
[2016-08-02 06:04] LABS: BASOPHILS % (AUTO) 0 % (0-10); EOSINOPHILS % (AUTO) 1 % (0-10); LYMPHOCYTES # (AUTO) 1.5 X 10^3 (1.0-4.0); LYMPHOCYTES % (AUTO) 32 % (12-44); MEAN CORPUSCULAR HEMOGLOBIN 30 PG (25-34); MEAN CORPUSCULAR HGB CONC 32 G/DL (32-36); MEAN CORPUSCULAR VOLUME 93 FL (80-99); MEAN PLATELET VOLUME 10.9 FL (7.4-10.4); MONOCYTES # (AUTO) 0.6 X 10^3 (0.0-1.0); MONOCYTES % (AUTO) 13 % (0-12); NEUTROPHILS # (AUTO) 2.6 X 10^3 (1.8-7.8); NEUTROPHILS % (AUTO) 54 % (42-75); PLATELET COUNT 203 10^3/uL (130-400); RED BLOOD COUNT 2.53 10^6/uL (4.35-5.85); WHITE BLOOD COUNT 4.7 10^3/uL (4.3-11.0)
[2016-08-02 06:31] LABS: ALBUMIN 2.5 G/DL (3.2-4.5); BILIRUBIN,TOTAL 0.3 MG/DL (0.1-1.0); CALCIUM 8.3 MG/DL (8.5-10.1); CREATININE SERUM 1.5 MG/DL (0.60-1.30); POTASSIUM 3.3 MMOL/L (3.6-5.0); TOTAL PROTEIN 5.1 G/DL (6.4-8.2)
[2016-08-02 08:00] VITALS: BP 115/69
[2016-08-02] MEDS ORDERED: IRON SUCROSE INJECTION 200 MG in NS (IVPB) 100 ML IV SCH (09:30)
--- NOTE | 2016-08-02 09:55 | Pulmonary Progress Note ---
Subjective Subjective/Events-last exam Pt is feeling much better. She is ready to go home today and denies any shortness of breath, f/ns/c and denies cough. Exam Exam Vital Signs Date Time Temp Pulse Resp B/P (MAP) Pulse Ox O2 Delivery O2 Flow Rate FiO2 08/02/16 08:00 99.0 80 20 115/69 97 Room Air 08/02/16 04:42 97.4 80 16 110/61 99 Room Air 08/02/16 00:49 97.3 76 12 112/59 97 Room Air 08/01/16 21:23 99.7 08/01/16 21:21 99.7 08/01/16 20:10 Room Air 08/01/16 20:05 100.7 08/01/16 20:00 100.1 95 20 130/79 96 Room Air 08/01/16 16:00 99.8 89 20 111/70 97 Room Air 08/01/16 12:00 97.5 91 20 99/70 99 Room Air I & O 08/02/16 07:00 Intake Total 2970 ml Output Total 4950 ml Balance -1980 ml General Appearance: No Apparent Distress, WD/WN HEENT: Normal ENT Inspection Neck: Supple Respiratory: Lungs Clear, Normal Breath Sounds, No Accessory Muscle Use, No Respiratory Distress Cardiovascular: Regular Rate, Rhythm, No Gallop, No Murmur Capillary Refill: Less Than 3 Seconds Gastrointestinal: normal bowel sounds, non tender Extremity: Normal Capillary Refill, Normal Inspection, Normal Range of Motion, Non Tender, No Calf Tenderness, Pedal Edema Neurologic/Psychiatric: Alert, Oriented x3, No Motor/Sensory Deficits, Normal Mood/Affect Skin: Normal Color, Warm/Dry Lymphatic: No Adenopathy Results Lab Laboratory Tests 08/01/16 05:37 08/02/16 05:15 Assessment/Plan Assessment/Plan Severe sepsis with shock secondary to UTI -improved and pt is preparing for discharge Acute renal failure- improved Hyperkalemia - resolved Hypomagnesium - improved Anemia - being addressed by Dr. King Clinical Quality Measures DVT/VTE Risk/Contraindication: Risk Factor Score Per Nursin RFS Level Per Nursing on Admit: 4+=Very High Contraindications-Pharm: Other *list below* Other: GI bleeding BART ISLAS APRN Aug 02, 2016 09:55
[2016-08-02] MEDS: LEVOTHYROXINE 150 MCG (LEVOTHROID) TAB PO SCH (10:15)
[2016-08-02] MEDS: PANTOPRAZOLE 40 MG (PROTONIX) TAB PO SCH (10:15)
[2016-08-02] MEDS ORDERED: AMOX-358 PO (10:35)
[2016-08-02] MEDS ORDERED: ONDA8TAB9 PO (10:35)
--- NOTE | 2016-08-02 10:38 | Discharge Summary-Hospitalist ---
Diagnosis/Chief Complaint Date of Admission Jul 28, 2016 at 17:42 Date of Discharge Discharge Date: Aug 02, 2016 Admission Diagnosis Assessment: Septic shock due to enterococcus on urine culture likely will result in blood cultures requiring aggressive IV fluid resuscitation along with pressor therapy Hypertension as an outpatient very mild Hypothyroidism Acute renal failure Anemia dilutional cause in addition to acute renal failure Discharge Diagnosis Assessment: Septic shock due to enterococcus Klebsiella on cultures requiring aggressive IV fluid resuscitation along with pressor therapy Hypertension as an outpatient very mild Hypothyroidism Acute renal failure now much improved Anemia dilutional cause in addition to acute renal failure Patient doing much better after aggressive ICU hospital course with massive IV fluid resuscitation along with pressor therapy Reviewed blood culture and urine culture and shifted to Unasyn Will go home on Augmentin Renal ultrasound evaluated with radiology showing mass in left kidney so will repeat in one month Likely right kidney only has 20 percent function because cortex is viable per urology evaluation but needs nuclear scan to see if there is any contribution of the right side but likely 20 percent Will not need nephrology Patient denies any frequent UTIs especially since she's been treated by me for the last 10 years so this is not a chronic and recurrent UTI issue Feels edematous considering all the fluid that she did receive so we'll start Lasix creatinine noted at 1.6 down from a high of 5.8. No fever, vital signs stable, pleasant, improved, edematous Regular rate and rhythm, clear to auscultation bilaterally Nonpitting type of edema Laboratory Tests 08/01/16 05:37 Assessment: Septic shock due to enterococcus on cultures requiring aggressive IV fluid resuscitation along with pressor therapy Hypertension as an outpatient very mild Hypothyroidism Acute renal failure now much improved Anemia dilutional cause in addition to acute renal failure Plan: Monitor labs Unasyn transitioned from broad spectrum then will shift to PO Augmentin at DC Lasix IV Ambulate Lovenox Check USG in 1 month to assure no mass of the left kidney Monitor Hgb and will check Iron level Reason Hospital Visit/Course CC: Septic shock requiring aggressive IV fluid resuscitation along with pressor therapy likely due to enterococcus source from pyelonephritis HPI: This is a 46-year-old white female clinic patient of mine that I see on a yearly basis that has a past medical history of mild hypertension and hypothyroidism that presented to the emergency room after she was a no-show at my clinic appointment due to worsening status the prompted ER D to her the decision made by her mother. She was found to be in septic shock with blood pressure of systolic of 70 and aggressive IV fluid resuscitation was started along with panculture and initiated broad-spectrum antibiotics for empiric treatment of bacterial infection. She had been feeling unwell for the past several weeks reported to [facility] urgent care and had declined labs as ordered by Dr. Teague the physician at the urgent care due to cost concerns and she only worsened since that time with nausea and vomiting and fever and prompted an appointment with me scheduled for yesterday but in the mist of traveling to the clinic she worsened to the point that her mother took her to the emergency room and found to be on borderline of complete clinical decompensation. She is required 6 L of fluid since admission is placed on Levophed for pressor therapy and broad-spectrum antibiotic coverage remains with good urinary output with creatinine initially 5.8 now is 3.8 with good urinary output. She is currently very fatigued and not talking very much and her mother is updated on the plan. Note from 08/02/16: Patient doing well overall and requesting another dose of Lasix to help with edema but that is even much improved Good urinary output No fever Overall labs look much improved creatinine 1.5 and ready for discharge Augmentin we'll complete the 10 day course for septic shock bacteremia Klebsiella and enterococcus causing near complete clinical decompensation. No fever, vital signs stable, pleasant, improved Regular rate and rhythm, clear to auscultation bilaterally Nonpitting edema noted Hospital course: Patient had a lengthy and mostly ICU course during hospitalization due to septic shock from Klebsiella and enterococcus. She had been ill for the prior 3 weeks and had gone to [facility] urgent care but had frequent fused lab work to further evaluate condition due to fact that she didn't have insurance coverage. She had made an appointment with me but due to the significant decline in status her mother instead detoured to the emergency room patient was found to have septic shock with systolic blood pressure of 60 and aggressive IV fluid management was initiated along with broad -spectrum antibiotics of vancomycin and Zosyn while workup was being completed and cultures obtained. She was found to have severe pyelonephritis and then on workup showed right kidney that likely was only contributing to 20 percent of renal function of which she had never had a history of recurrent UTIs or any kidney problems in the past. Her creatinine was 5.8 on admission aggressive IV fluid resuscitation in addition to pressor therapy were required and patient finally improved to the point that she was out of critically ill status and was actually improving. Good urinary output resulted she did not require any dialysis or intubation and overall responded to aggressive treatment without residual and creatinine was near normal at time of discharge. I will see her in close follow-up at the clinic in 1 week while being placed on Augmentin to complete 10 days of therapy and we will eventually obtain nuclear scan to evaluate contribution of the right kidney to overall renal function. I did confer with urology reviewed the case and CT scan found to not be in need of urology consultation formally or nephrology consultation. She overall felt well and was discharged in improved condition with close follow-up at my clinic. Discharge Summary Discharge Physical Examination Allergies: Coded Allergies: No Known Drug Allergies (Unverified , 07/28/16) Vitals & I&Os Vital Signs Date Time Temp Pulse Resp B/P (MAP) Pulse Ox O2 Delivery O2 Flow Rate FiO2 08/02/16 16:19 88 20 107/59 97 08/02/16 11:58 99.2 Room Air Hospital Course Labs (last 24 hrs) Microbiology 07/28/16 Blood Culture - Final, Complete No growth 07/28/16 Urine Culture - Final, Complete Klebsiella Pneumoniae Enterococcus Faecalis Pending Labs Discharge Home Medications: Active Scripts Active Zofran Odt (Ondansetron) 8 Mg Tab.rapdis 8 Mg PO Q6H PRN Augmentin 875-125 Tablet (Amoxicillin/Potassium Clav) 1 Each Tablet 1 Each PO BID Reported Fish Oil 1,000 mg Capsule ([place] 3 Polyunsat Fatty Acids) 1,000 Mg Cap 2,000 Mg PO DAILY TAKES 2 (1000MG) CAPSULES Levothyroxine Sodium 150 Mcg Tablet 150 Mcg PO Q48H TAKES EVERY OTHER DAY ALTERNATING WITH 137MCG DOSE Levothyroxine Sodium 137 Mcg Tablet 137 Mcg PO Q48H TAKES EVERY OTHER DAY ALTERNATING WITH 150MCG Instructions to patient/family Please see electonic discharge instructions given to patient. Clinical Quality Measures DVT/VTE Risk/Contraindication: Risk Factor Score Per Nursin RFS Level Per Nursing on Admit: 4+=Very High Contraindications-Pharm: Other *list below* Other: GI bleeding NAIF BARR DO Aug 02, 2016 10:38
[2016-08-02] MEDS ORDERED: FUROSEMIDE 40 MG/4 ML INJ (LASIX) IVP NR (10:45)
[2016-08-02 11:58] VITALS: BP 107/59
[2016-08-02 16:19] VITALS: BP 107/59
== END 2016-08-02 14:30 | disposition home or self-care (01) | DRG 871 ==
LOC: EDUNIT# 15:30 → ER 15:31 → ICU 17:42 → 4TH 07-31 12:00
PROVIDERS: ADMIT Internal Medicine; ATTEND Internal Medicine
PROC: 02HV33Z Insertion of Infusion Device into Superior Vena Cava, Percutaneous Approach (ICD-10-PCS; principal; 2016-07-28)
DX: A41.9 Sepsis, unspecified organism (principal); R65.21 Severe sepsis with septic shock; N39.0 Urinary tract infection, site not specified; N17.9 Acute kidney failure, unspecified; E87.5 Hyperkalemia; E83.42 Hypomagnesemia; I10 Essential (primary) hypertension; D64.9 Anemia, unspecified; N28.89 Other specified disorders of kidney and ureter; E03.9 Hypothyroidism, unspecified
CPT/HCPCS: 36415; 71010; 74176; 76770; 80048; 80053; 80202; 81000; 82040; 82330; 83540; 83605; 83735; 84100; 84132; 85007; 85025; 85027; 87040; 87077; 87088; 87186; 96361; 96365; 96375

== ENCOUNTER → 2016-08-04 | Outpatient (CLI) | payer OTHER ==
[~2016-08-04] MED LIST: AMOX-358 PO; HYDR25TA4 PO; LEVO137T2 PO; LEVO150T6 PO; OMG1KC PO; ONDA8TAB9 PO; QUIN40TA25 PO
[2016-08-04 11:27] LABS: MEAN PLATELET VOLUME 9.7 FL (7.4-10.4); RED BLOOD COUNT 2.89 10^6/uL (4.35-5.85); RED CELL DISTRIBUTION WIDTH 12.9 % (10.0-14.5); WHITE BLOOD COUNT 7.1 10^3/uL (4.3-11.0)
[2016-08-04 11:47] LABS: ALBUMIN 3.1 G/DL (3.2-4.5); BILIRUBIN,TOTAL 0.4 MG/DL (0.1-1.0); CALCIUM 8.7 MG/DL (8.5-10.1); CREATININE SERUM 1.43 MG/DL (0.60-1.30); POTASSIUM 3.7 MMOL/L (3.6-5.0); TOTAL PROTEIN 6.3 G/DL (6.4-8.2)
== END ==
LOC: LAB 11:05
PROVIDERS: ATTEND Internal Medicine
DX: A41.9 Sepsis, unspecified organism (principal)
CPT/HCPCS: 36415; 80053; 85027

== ENCOUNTER → 2016-08-08 | Outpatient (CLI) | payer OTHER ==
[2016-08-08 08:51] LABS: MEAN PLATELET VOLUME 9.1 FL (7.4-10.4); RED BLOOD COUNT 3.09 10^6/uL (4.35-5.85); RED CELL DISTRIBUTION WIDTH 13.6 % (10.0-14.5); WHITE BLOOD COUNT 7.9 10^3/uL (4.3-11.0)
[2016-08-08 09:10] LABS: ALBUMIN 3.5 G/DL (3.2-4.5); BILIRUBIN,TOTAL 0.3 MG/DL (0.1-1.0); CALCIUM 9.4 MG/DL (8.5-10.1); CREATININE SERUM 1.34 MG/DL (0.60-1.30); POTASSIUM 4.4 MMOL/L (3.6-5.0)
== END ==
LOC: LAB 08:38
PROVIDERS: ATTEND Internal Medicine
DX: A41.9 Sepsis, unspecified organism (principal)
CPT/HCPCS: 36415; 80053; 85027

== ENCOUNTER → 2016-11-29 | Outpatient (CLI) | payer OTHER ==
[~2016-11-29] MED LIST changes: +CIPR500T4 PO; +LEVO500T80 PO; +ONDA8TAB13 PO; +PHEN-640 PO; +QUIN40TA14 PO; -QUIN40TA25 PO
--- NOTE | 2016-11-29 15:19 | Diagnostic Imaging Report ---
PA and lateral chest. 2:30. INDICATION: Cough. Heart size is within normal limits and stable when compared to 07/31/2016. In the interval since the prior exam, the right-sided PICC line has been removed. The lungs are clear. There is no sign of failure, pneumonia or pleural effusion. Mediastinum is not widened. The osseous structures are intact. IMPRESSION: 1. There is no evidence for acute cardiopulmonary abnormality. 2. The right-sided central venous catheter noted previously has been removed. Dictated by: Dictated on workstation # [id number]
== END ==
LOC: RAD 14:07
PROVIDERS: ATTEND Internal Medicine
DX: R05 Cough (principal)
CPT/HCPCS: 71020

== ENCOUNTER 2017-01-07 10:31 | Emergency (ER) | payer OTHER ==
[~2017-01-07] VITALS: Ht 167.6 cm; Wt 79.4 kg
[~2017-01-07 10:31] MED LIST changes: -CIPR500T4 PO; -LEVO500T80 PO; -ONDA8TAB13 PO; -PHEN-640 PO
[2017-01-07 11:04] LABS: BILIRUBIN,URINE NEGATIVE (NEGATIVE); KETONES,URINE 1+ (NEGATIVE); LEUKOCYTE ESTERASE ,URINE 3+ (NEGATIVE); NITRITE,URINE NEGATIVE (NEGATIVE); PH,URINE 6 (5-9); PROTEIN,URINE 3+ (NEGATIVE); UROBILINOGEN,URINE NORMAL (NORMAL)
[2017-01-07 11:18] LABS: WBC,URINE >100 /HPF
[2017-01-07 11:19] LABS: SQUAMOUS EPITHELIAL CELL,UR 0-2 /HPF
--- NOTE | 2017-01-07 11:41 | ED GU-Female ---
General Chief Complaint: -Female Stated Complaint: HOT/COLD, LOWER BACK PAIN Nursing Triage Note: PT CO OF LOW BACK PAIN, FREQUENCY OF URINATION, CHILLS AT TIMES, URINE HAVE ODOR Nursing Sepsis Screen: No Definite Risk Source: patient Exam Limitations: no limitations History of Present Illness Time seen by provider: 11:41 Initial Comments 46-year-old female patient presents to the emergency department complains of bilateral low back pain and frequency of urination. Patient states she does have intermittent chills and did have a fever last night but did not use a thermometer. Patient reports she was admitted to [facility] in July for sepsis and urinary tract infection. Does complain of malodorous urine and poor appetite. Timing/Duration: this morning Severity/Quality: aching Location: other (low back) Radiation: none Activities at Onset: none Prior Genitourinary Problems: similar symptoms Modifying Factors: Worsens With Other (denies modifying factors.) Allergies and Home Medications Allergies Coded Allergies: No Known Drug Allergies (Unverified , 07/28/16) Home Medications Ciprofloxacin HCl 500 Mg Tablet, 500 MG PO BID, #20 Ref 0 Prescribed by: ISHA CANO on 01/07/17 1311 Levothyroxine Sodium 137 Mcg Tablet, 137 MCG PO Q48H, (Reported) TAKES EVERY OTHER DAY ALTERNATING WITH 150MCG Levothyroxine Sodium 150 Mcg Tablet, 150 MCG PO Q48H, (Reported) TAKES EVERY OTHER DAY ALTERNATING WITH 137MCG DOSE Ondansetron 8 Mg Tab.rapdis, 8 MG PO Q6H PRN for NAUSEA/VOMITING-1ST LINE, #10 Ref 0 Prescribed by: ISHA CANO on 01/07/17 1300 Phenazopyridine HCl 200 Mg Tablet, 1 TAB PO Q8H PRN for SPASMS, #14 Ref 0 Prescribed by: ISHA CANO on 01/07/17 1257 Constitutional: chills, fever, malaise EENTM: no symptoms reported Respiratory: No cough, No short of breath Cardiovascular: No chest pain, No edema, No palpitations Gastrointestinal: No abdominal pain, No constipation, No diarrhea, loss of appetite, No melena, No nausea, No vomiting Genitourinary: see HPI, denies burning, denies discharge, denies dysuria, frequency, denies flank pain, denies hematuria Musculoskeletal: see HPI, back pain, No joint pain Skin: no symptoms reported Psychiatric/Neurological: No Symptoms Reported All Other Systemes Reviewed Negative Unless Noted: Yes (Negative excepted noted.) Past Woczwee-Eaxpxc-Lgrber Hx Patient Social History Alcohol Use: Denies Use Recreational Drug Use: No Smoking Status: Never a Smoker Recent Foreign Travel: No Contact w/Someone Who Travel: No Recent Infectious Disease Expo: No Recent Hopitalizations: No Physical Abuse: No Sexual Abuse: No Seasonal Allergies Seasonal Allergies: No Surgeries History of Surgeries: No Respiratory History of Respiratory Disorde: No Cardiovascular History of Cardiac Disorders: Yes Cardiac Disorders: Hypertension Neurological History of Neurological Disord: No Reproductive System Last Menstrual Period: Dec 16, 2016 Hx Reproductive Disorders: No Sexually Transmitted Disease: No Female Reproductive Disorders: Menstrual Problems Gastrointestinal History of Gastrointestinal Di: No Musculoskeletal History of Musculoskeletal Dis: No Endocrine History of Endocrine Disorders: Yes Endocrine Disorders: Hypothyroidsim HEENT History of HEENT Disorders: No Cancer History of Cancer: No Psychosocial History of Psychiatric Problem: No Suicide Risk Score: 0 Integumentary History of Skin or Integumenta: No Blood Transfusions History of Blood Disorders: No Reviewed Nursing Assessment Reviewed/Agree w Nursing PMH: Yes Family Medical History Significant Family History: No Pertinent Family Hx Family Medial History: Patient reports no known family medical history. Physical Exam Vital Signs Vital Sign - Last 12Hours 01/07/17 10:35 Temp 97.8 Pulse 90 Resp 18 B/P (MAP) 126/59 Pulse Ox 98 Capillary Refill : Less Than 3 Seconds General Appearance: WD/WN, no apparent distress HEENT: PERRL/EOMI, pharynx normal Neck: supple, normal inspection Cardiovascular: normal peripheral pulses, regular rate, rhythm, no murmur Respiratory: lungs clear, normal breath sounds, no respiratory distress, no accessory muscle use Gastrointestinal: normal bowel sounds, soft, no organomegaly, No distended, No guarding, No rebound, tenderness (mild suprapubic tenderness), No mass Back: normal inspection, no CVA tenderness, no vertebral tenderness Extremities: no calf tenderness, normal capillary refill, pedal edema (trace pedal edema bilaterally) Neurologic/Psychiatric: no motor/sensory deficits, alert, normal mood/affect, oriented x 3 Skin: normal color, warm/dry Focused Exam Evaluation Lactate Level Laboratory Tests 01/07/17 12:10: Lactic Acid Level 1.07 Lactic Acid Level Laboratory Tests Test 01/07/17 12:10 Lactic Acid Level 1.07 MMOL/L (0.50-2.00) Progress/Results/Core Measures Results/Orders Lab Results Laboratory Tests Test 01/07/17 10:15 01/07/17 12:10 Range/Units Urine Color YELLOW Urine Clarity VERY CLOUDY H Urine pH 6 5-9 Urine Specific [place] 1.010 L 1.016-1.022 Urine Protein 3+ H NEGATIVE Urine Glucose (UA) NEGATIVE NEGATIVE Urine Ketones 1+ H NEGATIVE Urine Nitrite NEGATIVE NEGATIVE Urine Bilirubin NEGATIVE NEGATIVE Urine Urobilinogen NORMAL NORMAL MG/DL Urine Leukocyte Esterase 3+ H NEGATIVE Urine RBC (Auto) 2+ H NEGATIVE Urine RBC NONE /HPF Urine WBC >100 H /HPF Urine Squamous Epithelial Cells 0-2 /HPF Urine Crystals NONE /LPF Urine Bacteria MODERATE H /HPF Urine Casts NONE /LPF Urine Mucus NEGATIVE /LPF Urine Culture Indicated YES White Blood Count 11.9 H 4.3-11.0 10^3/uL Red Blood Count 4.09 L 4.35-5.85 10^6/uL Hemoglobin 11.9 11.5-16.0 G/DL Hematocrit 37 35-52 % Mean Corpuscular Volume 90 80-99 FL Mean Corpuscular Hemoglobin 29 25-34 PG Mean Corpuscular Hemoglobin Concent 33 32-36 G/DL Red Cell Distribution Width 14.4 10.0-14.5 % Platelet Count 314 130-400 10^3/uL Mean Platelet Volume 11.5 H 7.4-10.4 FL Neutrophils (%) (Auto) 74 42-75 % Lymphocytes (%) (Auto) 16 12-44 % Monocytes (%) (Auto) 9 0-12 % Eosinophils (%) (Auto) 2 0-10 % Basophils (%) (Auto) 0 0-10 % Neutrophils # (Auto) 8.7 H 1.8-7.8 X 10^3 Lymphocytes # (Auto) 1.9 1.0-4.0 X 10^3 Monocytes # (Auto) 1.1 H 0.0-1.0 X 10^3 Eosinophils # (Auto) 0.2 0.0-0.3 10^3/uL Basophils # (Auto) 0.0 0.0-0.1 10^3/uL Sodium Level 135 135-145 MMOL/L Potassium Level 4.0 3.6-5.0 MMOL/L Chloride Level 103 98-107 MMOL/L Carbon Dioxide Level 21 21-32 MMOL/L Anion Gap 11 5-14 MMOL/L Blood Urea Nitrogen 13 7-18 MG/DL Creatinine 1.14 0.60-1.30 MG/DL Estimat Glomerular Filtration Rate 52 BUN/Creatinine Ratio 11 Glucose Level 89 70-105 MG/DL Lactic Acid Level 1.07 0.50-2.00 MMOL/L Calcium Level 9.3 8.5-10.1 MG/DL Total Bilirubin 1.2 H 0.1-1.0 MG/DL Aspartate Amino Transf (AST/SGOT) 14 5-34 U/L Alanine Aminotransferase (ALT/SGPT) 12 0-55 U/L Alkaline Phosphatase 122 40-136 U/L C-Reactive Protein High Sensitivity 13.03 H 0.00-0.50 MG/DL Total Protein 7.2 6.4-8.2 GM/DL Albumin 3.8 3.2-4.5 GM/DL My Orders Orders - ISHA CANO Cbc With Automated Diff (01/07/17 11:48) Comprehensive Metabolic Panel (01/07/17 11:48) Hs C Reactive Protein (01/07/17 11:48) Lactic Acid Analyzer (01/07/17 11:48) Blood Culture (01/07/17 11:48) Saline Lock/Iv-Start (01/07/17 11:48) Ondansetron Injection (Zofran Injectio (01/07/17 12:00) Levofloxacin 750 Mg/150 Ml Iv (Levaquin (01/07/17 11:48) Ns Iv 1000 Ml (Sodium Chloride 0.9%) (01/07/17 11:48) Medications Given in ED Current Medications Medications Dose Ordered Sig/Ady Route Start Time Stop Time Status Last Admin Dose Admin Ondansetron HCl 4 mg ONCE ONCE IVP 01/07/17 12:00 01/07/17 12:01 DC 01/07/17 12:10 4 MG Sodium Chloride 1,000 ml @ 0 mls/hr Q0M ONCE IV 01/07/17 11:48 01/07/17 11:52 DC 01/07/17 12:10 1,000 MLS/HR Vital Signs/I&O Vital Sign - Last 12Hours 01/07/17 10:35 Temp 97.8 Pulse 90 Resp 18 B/P (MAP) 126/59 Pulse Ox 98 Blood Pressure Mean: 81 Point of Care Testing Urine -Bedside: Negative Departure Communication (Admissions) Progress Notes Laboratory findings discussed with the patient. Patient was given Levaquin 750 mg IV, 1 L normal saline, and Zofran 4 mg in the emergency department. Plan for discharge to home with prescriptions for ciprofloxacin, Pyridium, and Zofran. Patient instructed to f/u with Dr. King in her office for recheck as an outpatient. Impression Impression: Primary Impression: Urinary tract infection Qualified Codes: N30.00 - Acute cystitis without hematuria Additional Impression: Volume depletion Disposition: HOME, SELF-CARE Condition: Improved Departure-Patient Inst. Decision time for Depature: 12:55 Referrals: NAIF KING DO (PCP/Family) Primary Care Physician Patient Instructions: Dehydration, Adult (DC), Urinary Tract Infection, Adult ( DC) Add. Discharge Instructions: All discharge instructions reviewed with patient and/or family. Voiced understanding. Medications as instructed. Tylenol Extra Strength over-the- counter as directed for pain. Ibuprofen 800 mg by mouth every 8 hours as needed for pain. Drink plenty of fluids. Follow-up with Dr. King for recheck as an outpatient. Call Monday for appointment time. Return to the emergency department for worsened pain, fever, vomiting, inability urinate, blood in the urine, or any other concerns. Scripts Ciprofloxacin HCl (Ciprofloxacin HCl) 500 Mg Tablet 500 MG PO BID, #20 TAB 0 Refills Prov: ISHA CANO 01/07/17 Ondansetron (Ondansetron Odt) 8 Mg Tab.rapdis 8 MG PO Q6H Y for NAUSEA/VOMITING-1ST LINE, #10 TAB 0 Refills Prov: ISHA CANO 01/07/17 Phenazopyridine HCl (Pyridium) 200 Mg Tablet 1 TAB PO Q8H Y for SPASMS, #14 TAB 0 Refills Prov: ISHA CANO 01/07/17 ISHA CANO Jan 07, 2017 11:41
[2017-01-07] MEDS ORDERED: LEVOFLOXACIN 750 MG/150 ML IV 150 ML IV STA (11:48)
[2017-01-07] MEDS ORDERED: NS IV 1000 ML 1,000 ML IV ONE (11:48)
[2017-01-07] MEDS ORDERED: ONDANSETRON 4 MG/2 ML (SDV) Z0FRAN IVP ONE (12:00)
[2017-01-07 12:26] LABS: BASOPHILS % (AUTO) 0 % (0-10); EOSINOPHILS % (AUTO) 2 % (0-10); LYMPHOCYTES % (AUTO) 16 % (12-44); MEAN CORPUSCULAR HEMOGLOBIN 29 PG (25-34); MEAN CORPUSCULAR HGB CONC 33 G/DL (32-36); MEAN CORPUSCULAR VOLUME 90 FL (80-99); MEAN PLATELET VOLUME 11.5 FL (7.4-10.4); MONOCYTES % (AUTO) 9 % (0-12); NEUTROPHILS % (AUTO) 74 % (42-75); PLATELET COUNT 314 10^3/uL (130-400); RED BLOOD COUNT 4.09 10^6/uL (4.35-5.85); RED CELL DISTRIBUTION WIDTH 14.4 % (10.0-14.5); WHITE BLOOD COUNT 11.9 10^3/uL (4.3-11.0)
[2017-01-07 12:27] LABS: EOSINOPHILS # (AUTO) 0.2 10^3/uL (0.0-0.3); LYMPHOCYTES # (AUTO) 1.9 X 10^3 (1.0-4.0); MONOCYTES # (AUTO) 1.1 X 10^3 (0.0-1.0); NEUTROPHILS # (AUTO) 8.7 X 10^3 (1.8-7.8)
[2017-01-07 12:46] LABS: ALBUMIN 3.8 GM/DL (3.2-4.5); BILIRUBIN,TOTAL 1.2 MG/DL (0.1-1.0); CALCIUM 9.3 MG/DL (8.5-10.1); CREATININE SERUM 1.14 MG/DL (0.60-1.30); TOTAL PROTEIN 7.2 GM/DL (6.4-8.2); hs C REACTIVE PROTEIN 13.03 MG/DL (0.00-0.50)
[2017-01-07] MEDS ORDERED: PHEN-640 PO (12:57)
[2017-01-07] MEDS ORDERED: LEVO500T80 PO (12:57)
[2017-01-07] MEDS ORDERED: ONDA8TAB13 PO (13:00)
[2017-01-07] MEDS ORDERED: CIPR500T4 PO (13:11)
[2017-01-07 14:04] VITALS: BP 126/59
== END 2017-01-07 14:04 | disposition home or self-care (01) ==
LOC: EDUNIT# 10:31 → ER 10:32
DX: N39.0 Urinary tract infection, site not specified (principal); E86.9 Volume depletion, unspecified; E03.9 Hypothyroidism, unspecified; I10 Essential (primary) hypertension; Z86.19 Personal history of other infectious and parasitic diseases
CPT/HCPCS: 36415; 80053; 81000; 83605; 84703; 85025; 86141; 87040; 87088; 87186; 96361; 96365; 96375